=== PATIENT | female | born 1960 | race Caucasian/White ===

== ENCOUNTER 2016-10-10 22:13 | Observation (INO) | payer MEDICARE ==
[2016-10-10] MEDS ORDERED: DUONEB 0.5-3 MG/3 ml Neb IH ONE ×2 (22:36→22:52)
--- NOTE | 2016-10-10 22:43 | ERPHSYRPT ---
- History of Present Illness Time Seen by Provider: 10/10/16 22:31 Source: patient Exam Limitations: no limitations Patient Subjective Stated Complaint: reports that she has had cough/congestion/ nausea since yesterday - unable to lie down flat - SOB with exertion - denies fever at home - denies pain Triage Nursing Assessment: WC to treatment area - waddling gait to cart - moves all extremities with equal strength. skin flushed/hot/dry - no rash/injury appreciated. resps labored per exertion - persisting, hacking cough productive of green mucous. alert/oriented - grimmacing affect. FSBS: 240 Physician History: This is a 56-year-old white female with history of peripheral neuropathy, cataracts, diabetes, arthritis Patient arrives with complaint of cough congestion runny nose symptoms since yesterday she states she's been short of breath with exertion and with lying flat she denies any chest pain she states she felt hot but has not taken her temperature she has no vomiting but has nausea no diarrhea she has no chest pain or abdominal pain. Past medical history includes peripheral neuropathy, cataracts, diabetes, arthritis. Past surgical history includes cholecystectomy, hernia repair, lumpectomy, bilateral cataracts Timing/Duration: yesterday (symptoms since last nightShirley chest pain no) Severity: moderate Modifying Factors: Improves With: nothing Associated Symptoms: nausea, shortness of breath, cough, No vomiting, No abdominal pain, No heartburn, No diaphoresis, No chills, No chest pain, No fever , No headaches, No loss of appetite, No malaise, No rash, No syncope, No seizure , No weakness Allergies/Adverse Reactions: No Known Drug Allergies Allergy (Verified 10/10/16 22:20) Home Medications: Gabapentin 400 mg [Neurontin 400 MG] 600 mg PO QID 04/13/15 [History] Metformin HCl 1000 mg [Glucophage 1000 MG] 1,000 mg PO BID 04/13/15 [History] Naproxen 250 mg PO BID 04/13/15 [History] Nortriptyline HCl [Pamelor] 100 mg PO QHS 04/13/15 [History] Aspirin 81 gm Chew [Baby Aspirin 81 mg Chew] 81 mg PO DAILY 05/03/16 [ History] Bumetanide 1 mg [Bumex 1 mg] 1 mg PO BID 08/03/16 [History] Diclofenac Sodium 50 mg [Voltaren 50 mg] 50 mg PO TID 08/03/16 [History] Glipizide 10 mg [Glucotrol 10 MG] 10 mg PO BID 08/03/16 [History] Insulin Detemir [Levemir] 10 units SQ DAILY 08/03/16 [History] Loratadine 10 mg [Claritin 10 mg] 10 mg PO DAILY 08/03/16 [History] Potassium Chloride 10 Meq Tab* [Klor Con 10 MEQ] 10 meq PO DAILY 08/03/16 [ History] Hydrocodone Bit/Acetaminophen [[place] 5/325Mg] 1 each PO QID 10/10/16 [History] Hx Tetanus, Diphtheria Vaccination/Date Given: Yes Hx Influenza Vaccination/Date Given: No Hx Pneumococcal Vaccination/Date Given: No Immunizations Up to Date: Yes - Review of Systems Constitutional: No Fever, No Chills, No Fatigue, No Lethargy, No Malaise, No Night Sweats, No Weakness, No Weight Loss Eyes: No Symptoms Ears, Nose, & Throat: Nose Congestion, Sinus Drainage, No Ear Pain, No Ear Discharge, No Hearing Changes, No Tinnitus, No Nose Pain, No Nose Discharge, No Epistaxis, No Mouth Pain, No Mouth Swelling, No Loose Teeth, No Throat Pain, No Throat Swelling, No Hoarse, No Painful Swallowing, No Snoring, No Stridor Respiratory: Cough, Dyspnea, No Cyanosis, No Dyspnea on Exertion (LIN), No Stridor, No Wheezing, No Other Cardiac: No Chest Pain, No Edema, No Syncope Abdominal/Gastrointestinal: Nausea, No Abdominal Pain, No Vomiting, No Diarrhea , No Constipation, No Hematemesis, No Hematochezia, No Melena, No Dysphagia, No Appetite Changes Genitourinary Symptoms: No Dysuria Musculoskeletal: No Back Pain, No Neck Pain Skin: No Rash Neurological: No Dizziness, No Focal Weakness, No Sensory Changes Psychological: No Symptoms Endocrine: No Symptoms All Other Systems: Reviewed and Negative - Past Medical History Pertinent Past Medical History: Yes Neurological History: No Pertinent History, Peripheral Neuropathy ENT History: Cataracts Cardiac History: No Pertinent History Respiratory History: No Pertinent History Endocrine Medical History: Diabetes Type II Musculoskeletal History: Arthritis GI Medical History: No Pertinent History History: No Pertinent History Psycho-Social History: No Pertinent History Female Reproductive Disorders: No Pertinent History Other Medical History: UPDATED 03/14/15 - Past Surgical History Past Surgical History: Yes Neuro Surgical History: No Pertinent History Cardiac: No Pertinent History Respiratory: No Pertinent History Gastrointestinal: Bowel Surgery, Cholecystectomy, Hernia Repair Genitourinary: No Pertinent History Musculoskeletal: No Pertinent History Female Surgical History: Lumpectomy Other Surgical History: cataracts bilaterally - Social History Smoking Status: Current every day smoker How long have you smoked: 30 yrs Exposure to second hand smoke: No Alcohol Use: None Drug Use: none Patient Lives Alone: No Significant Family History: diabetes, hypertension - Female History Hx Last Menstrual Period: n/a Hx Now: No - Nursing Vital Signs Nursing Vital Signs: Initial Vital Signs Temperature 98.8 F Temperature Source Oral Pulse Rate 108 Respiratory Rate 20 Blood Pressure [] 140/67 Pain Intensity 0 - Physical Exam General Appearance: mild distress, other (morbidly obese white female alert oriented x 3, coughing) Eye Exam: PERRL/EOMI, eyes nml inspection Ears, Nose, Throat Exam: normal ENT inspection, TMs normal, pharynx normal, moist mucous membranes Neck Exam: normal inspection, non-tender, supple, full range of motion Respiratory Exam: diminished breath sounds, wheezing (Occasional wheeze) Cardiovascular Exam: tachycardia ( mild tachycardia without murmur) Gastrointestinal/Abdomen Exam: soft, normal bowel sounds, No tenderness, No mass Back Exam: normal inspection, normal range of motion, No CVA tenderness, No vertebral tenderness Extremity Exam: normal inspection, normal range of motion, pelvis stable Neurologic Exam: alert, oriented x 3, cooperative, normal mood/affect, nml cerebellar function, nml station & gait, sensation nml, No motor deficits Skin Exam: normal color, warm, dry, No rash Lymphatic Exam: No adenopathy SpO2 Interpretation: normal (96%) SpO2: 96 Oxygen Delivery: Room Air - Course Nursing assessment & vital signs reviewed: Yes EKG Interpreted by Me: RATE (105 bpm), Sinus Tach, NORMAL AXIS, Other (EKG, sinus tachycardia, 105 bpm, normal axis, no acute ST or T wave changes) - Radiology Exams Chest X-ray Interpretation: Interpreted by me (no acute disease process noted) Ordered Tests: Active Orders 24 hr Category Date Time Status Accucheck STAT Care 10/10/16 22:37 Active EKG-ER Only STAT Care 10/10/16 22:36 Active IV Insertion STAT Care 10/10/16 22:36 Active Oxygen-ED Only NASAL CANNULA 2 lpm Care 10/10/16 23:29 Active CHEST 1 VIEW (PORTABLE) Stat Exams 10/10/16 22:36 Taken BLOOD CULTURE Stat Lab 10/10/16 23:44 Ordered CBC W DIFF Stat Lab 10/10/16 22:45 Completed CMP Stat Lab 10/10/16 22:45 Completed CULTURE, THROAT Stat Lab 10/10/16 22:48 Received CULTURE,SPUTUM Stat Lab 10/10/16 23:44 Uncollected HCG QUALITATIVE,SERUM Stat Lab 10/10/16 22:45 Completed Manual Differential NC Stat Lab 10/10/16 22:45 Completed NT PRO BNP Stat Lab 10/10/16 22:45 Completed STREP SCREEN-BETA A Stat Lab 10/10/16 22:48 Completed TROPONIN Stat Lab 10/10/16 22:45 Completed UA W/ MICROSCOPIC Stat Lab 10/10/16 22:40 Completed VENOUS BLOOD GAS Urgent Lab 10/10/16 22:36 Completed Respiratory Nebulizer STAT RT 10/10/16 22:37 Completed Transfer Order Routine Transfer 10/10/16 23:48 Ordered Medication Summary Generic Name Dose Route Start Last Admin Trade Name Freq PRN Reason Stop Dose Admin Ceftriaxone Sodium/Dextrose 50 mls @ 100 mls/hr 10/10/16 23:45 Rocephin 1 Gm-D5w 50 Ml Bag IV 10/11/16 00:14 STAT ONE Sodium Chloride 1,000 mls @ 100 mls/hr 10/10/16 23:45 Sodium Chloride 0.9% 1000 Ml IV 11/09/16 23:44 .Q10H MORRIS Discontinued Medications Generic Name Dose Route Start Last Admin Trade Name Freq PRN Reason Stop Dose Admin Albuterol/Ipratropium 3 ml 10/10/16 22:36 10/10/16 22:57 Duoneb 0.5-3 Mg/3 Ml Neb IH 10/10/16 22:37 3 ml STAT ONE Administration Albuterol/Ipratropium Confirm 10/10/16 22:52 Duoneb 0.5-3 Mg/3 Ml Neb Administered 10/10/16 22:53 Dose 3 ml IH .STK-MED ONE Methylprednisolone Sodium Succinate 125 mg 10/10/16 23:45 Solu-Medrol 125 Mg IV 10/10/16 23:46 STAT ONE Lab/Rad Data: Laboratory Result Diagrams 10/10/16 22:45 10/10/16 22:45 Laboratory Results 10/10/16 10/10/16 10/10/16 Range/Units 22:48 22:45 22:45 WBC (4.0-10.5) K/mm3 RBC (4.1-5.4) M/mm3 Hgb (12.0-16.0) gm/dl Hct (35-47) % MCV (78-100) fl MCH (26-32) pg MCHC (32-36) g/dl RDW (11.5-14.0) % Plt Count (150-450) K/mm3 MPV (6-9.5) fl Segmented Neutrophils (36.0-66.0) % Lymphocytes (Manual) (24-44) % Monocytes (Manual) (0.0-12.0) % Eosinophils (Manual) (0.00-3.0) % Differential Comment Platelet Estimate (NORMAL) Anisocytosis VBG pH (7.32-7.42) VBG pCO2 at Pat Temp (42-55) mm/Hg VBG pO2 at Pat Temp (25-40) mm/Hg VBG HCO3 (22-28) meq/L VBG O2 Sat (Aaron) (95-100) VBG Base Excess (-2.0-2.0) VBG Hemoglobin VBG Carboxyhemoglobin (0.0-6.9) % T HGB POC Potassium (3.5-5.1) Sodium (136-145) mEq/L Potassium (3.5-5.1) mEq/L Chloride (98-107) mEq/L Carbon Dioxide (21-32) mEq/L Anion Gap (5-15) MEQ/L BUN (9-20) mg/dL Creatinine (0.55-1.30) mg/dl Estimated GFR ML/MIN Glucose (70-110) MG/DL Calcium (8.5-10.1) mg/dL Total Bilirubin (0.2-1.0) mg/dL AST (15-37) U/L ALT (12-78) U/L Alkaline Phosphatase (46-116) U/L Troponin I < 0.017 (0.000-0.056) ng/ml NT-Pro-B Natriuret Pep (0-125) pg/ml Serum Total Protein (6.4-8.2) gm/dL Albumin (3.4-5.0) g/dL Serum , Qual NEGATIVE (Negative) Ur Collection Type Urine Color (YELLOW) Urine Appearance (CLEAR) Urine pH (5-6) Ur Specific [place] (1.005-1.025) Urine Protein (Negative) Urine Glucose (UA) (NEGATIVE) mg/dL Urine Ketones (NEGATIVE) Urine Nitrite (NEGATIVE) Urine Bilirubin (NEGATIVE) Urine Urobilinogen (0-1) mg/dL Urine WBC (Auto) (NEGATIVE) Urine RBC (Auto) (0-5) Kevin/ul Urine Microscopic RBC (0-2) /HPF Ur Epithelial Cells (FEW) /HPF Urine Bacteria (NEGATIVE) /HPF Urine Mucus (NEGATIVE) /HPF Streptococcus Screen NEGATIVE (Negative) Specimen Received 10/10/16 10/10/16 10/10/16 Range/Units 22:45 22:45 22:40 WBC 5.9 (4.0-10.5) K/mm3 RBC 4.82 (4.1-5.4) M/mm3 Hgb 16.1 H (12.0-16.0) gm/dl Hct 48.4 H (35-47) % MCV 100.4 H (78-100) fl MCH 33.4 H (26-32) pg MCHC 33.3 (32-36) g/dl RDW 13.3 (11.5-14.0) % Plt Count 199 (150-450) K/mm3 MPV 11.0 H (6-9.5) fl Segmented Neutrophils 78 H (36.0-66.0) % Lymphocytes (Manual) 14 L (24-44) % Monocytes (Manual) 7 (0.0-12.0) % Eosinophils (Manual) 1 (0.00-3.0) % Differential Comment ABNORMAL Platelet Estimate NORMAL (NORMAL) Anisocytosis 1+ VBG pH (7.32-7.42) VBG pCO2 at Pat Temp (42-55) mm/Hg VBG pO2 at Pat Temp (25-40) mm/Hg VBG HCO3 (22-28) meq/L VBG O2 Sat (Aaron) (95-100) VBG Base Excess (-2.0-2.0) VBG Hemoglobin VBG Carboxyhemoglobin (0.0-6.9) % T HGB POC Potassium (3.5-5.1) Sodium 137 (136-145) mEq/L Potassium 4.4 (3.5-5.1) mEq/L Chloride 99 (98-107) mEq/L Carbon Dioxide 25.7 (21-32) mEq/L Anion Gap 16.3 H (5-15) MEQ/L BUN 14 (9-20) mg/dL Creatinine 0.80 (0.55-1.30) mg/dl Estimated GFR > 60 ML/MIN Glucose 250 H (70-110) MG/DL Calcium 9.3 (8.5-10.1) mg/dL Total Bilirubin 0.2 (0.2-1.0) mg/dL AST 25 (15-37) U/L ALT 34 (12-78) U/L Alkaline Phosphatase 128 H (46-116) U/L Troponin I (0.000-0.056) ng/ml NT-Pro-B Natriuret Pep 154 H (0-125) pg/ml Serum Total Protein 7.5 (6.4-8.2) gm/dL Albumin 3.3 L (3.4-5.0) g/dL Serum , Qual (Negative) Ur Collection Type CLEAN CATCH Urine Color YELLOW (YELLOW) Urine Appearance CLEAR (CLEAR) Urine pH 7.0 (5-6) Ur Specific [place] 1.020 (1.005-1.025) Urine Protein 100 (Negative) Urine Glucose (UA) 500 (NEGATIVE) mg/dL Urine Ketones NEGATIVE (NEGATIVE) Urine Nitrite NEGATIVE (NEGATIVE) Urine Bilirubin NEGATIVE (NEGATIVE) Urine Urobilinogen 0.2 (0-1) mg/dL Urine WBC (Auto) NEGATIVE (NEGATIVE) Urine RBC (Auto) TRACE NON-HEM (0-5) Kevin/ul Urine Microscopic RBC 0-2 (0-2) /HPF Ur Epithelial Cells FEW (FEW) /HPF Urine Bacteria FEW (NEGATIVE) /HPF Urine Mucus SLIGHT (NEGATIVE) /HPF Streptococcus Screen (Negative) Specimen Received 10/10/16:2240 10/10/16 Range/Units 22:36 WBC (4.0-10.5) K/mm3 RBC (4.1-5.4) M/mm3 Hgb (12.0-16.0) gm/dl Hct (35-47) % MCV (78-100) fl MCH (26-32) pg MCHC (32-36) g/dl RDW (11.5-14.0) % Plt Count (150-450) K/mm3 MPV (6-9.5) fl Segmented Neutrophils (36.0-66.0) % Lymphocytes (Manual) (24-44) % Monocytes (Manual) (0.0-12.0) % Eosinophils (Manual) (0.00-3.0) % Differential Comment Platelet Estimate (NORMAL) Anisocytosis VBG pH 7.37 (7.32-7.42) VBG pCO2 at Pat Temp 48 (42-55) mm/Hg VBG pO2 at Pat Temp 29 (25-40) mm/Hg VBG HCO3 27.7 (22-28) meq/L VBG O2 Sat (Aaron) 64.4 L (95-100) VBG Base Excess 1.5 (-2.0-2.0) VBG Hemoglobin 16.3 VBG Carboxyhemoglobin 9.8 H* (0.0-6.9) % T HGB POC Potassium 4.7 (3.5-5.1) Sodium (136-145) mEq/L Potassium (3.5-5.1) mEq/L Chloride (98-107) mEq/L Carbon Dioxide (21-32) mEq/L Anion Gap (5-15) MEQ/L BUN (9-20) mg/dL Creatinine (0.55-1.30) mg/dl Estimated GFR ML/MIN Glucose (70-110) MG/DL Calcium (8.5-10.1) mg/dL Total Bilirubin (0.2-1.0) mg/dL AST (15-37) U/L ALT (12-78) U/L Alkaline Phosphatase (46-116) U/L Troponin I (0.000-0.056) ng/ml NT-Pro-B Natriuret Pep (0-125) pg/ml Serum Total Protein (6.4-8.2) gm/dL Albumin (3.4-5.0) g/dL Serum , Qual (Negative) Ur Collection Type Urine Color (YELLOW) Urine Appearance (CLEAR) Urine pH (5-6) Ur Specific [place] (1.005-1.025) Urine Protein (Negative) Urine Glucose (UA) (NEGATIVE) mg/dL Urine Ketones (NEGATIVE) Urine Nitrite (NEGATIVE) Urine Bilirubin (NEGATIVE) Urine Urobilinogen (0-1) mg/dL Urine WBC (Auto) (NEGATIVE) Urine RBC (Auto) (0-5) Kevin/ul Urine Microscopic RBC (0-2) /HPF Ur Epithelial Cells (FEW) /HPF Urine Bacteria (NEGATIVE) /HPF Urine Mucus (NEGATIVE) /HPF Streptococcus Screen (Negative) Specimen Received - Progress Progress: improved Progress Note: 10/10/16 23:38 Patient's O2 saturation goes down to 87% on room air after breathing treatment. Patient still with a few wheezes bilaterally. Patient's labs essentially normal chest x-ray unremarkable glucose elevated at 250. Patient improved after 2 L of oxygen nasal cannula Will go ahead and place patient on IV fluids place patient on steroids and antibiotics case is discussed with Dr. olsen - Departure Time of Disposition: 23:43 Departure Disposition: Observation Clinical Impression: COPD with exacerbation, Bronchitis with bronchospasm, Hypoxia Condition: Fair Critical Care Time: No Referrals: STELLA WISDOM [Primary Care Provider] - Instructions: Chronic Obstructive Pulmonary Disease
[2016-10-10 22:57] LABS: Mean Cell Volume 100.4 fl (78-100); Mean Corpuscular Hemoglobin 33.4 pg (26-32); Platelet Count 199 K/mm3 (150-450); Red Blood Count 4.82 M/mm3 (4.1-5.4); Red Cell Distribution Width 13.3 % (11.5-14.0); White Blood Count 5.9 K/mm3 (4.0-10.5)
[2016-10-10 23:01] LABS: Bacteria FEW /HPF (NEGATIVE); COMPLETE URINE MICROSCOPIC? YES; Collection Type CLEAN CATCH; Epithelial Cells FEW /HPF (FEW); Mucus SLIGHT /HPF (NEGATIVE)
[2016-10-10 23:13] LABS: VBG BASE EXCESS 1.5 (-2.0-2.0); VBG CARBOXYHEMOGLOBIN 9.8 % T HGB (0.0-6.9); VBG HCO3- 27.7 meq/L (22-28); VBG HEMOGLOBIN 16.3; VBG O2 SATURATION 64.4 (95-100); VBG POTASSIUM 4.7 (3.5-5.1); VBG pH 7.37 (7.32-7.42)
[2016-10-10 23:22] LABS: ALBUMIN 3.3 g/dL (3.4-5.0); ALKALINE PHOSPHATASE 128 U/L (46-116); ANION GAP 16.3 MEQ/L (5-15); BILIRUBIN,TOTAL 0.2 mg/dL (0.2-1.0); BLOOD UREA NITROGEN 14 mg/dL (9-20); CHLORIDE 99 mEq/L (98-107); Carbon Dioxide 25.7 mEq/L (21-32); Glucose 250 MG/DL (70-110); Potassium 4.4 mEq/L (3.5-5.1); SGOT/AST 25 U/L (15-37); SGPT/ALT 34 U/L (12-78); SODIUM 137 mEq/L (136-145); Total Protein 7.5 gm/dL (6.4-8.2)
[2016-10-10 23:32] LABS: ANISOCYTOSIS 1+; Eosinophil 1 % (0.00-3.0); Platelet Estimate NORMAL (NORMAL); Total Cells Counted 100
[2016-10-10] MEDS ORDERED: Sodium Chloride 0.9% 1000 ML 1,000 ML IV SCH (23:45)
[2016-10-10] MEDS ORDERED: solu-MEDROL 125 MG IV ONE (23:45)
[2016-10-10] MEDS ORDERED: ROCEPHIN 1 Gm-D5w 50 ml Bag** 50 ML IV ONE ×2 (23:45→23:54)
[2016-10-10] MEDS ORDERED: solu-MEDROL 125 MG ONE (23:54)
[2016-10-10] MEDS ORDERED: Sodium Chloride 0.9% 1000 ML 1,000 ML ONE (23:54)
[2016-10-11] MEDS ORDERED: Sodium Chloride 0.9% 1000 ML 1,000 ML IV SCH (00:42)
[2016-10-11] MEDS ORDERED: NovoLOG Insulin SQ PRN (00:42)
[2016-10-11] MEDS ORDERED: DUONEB 0.5-3 MG/3 ml Neb IH PRN (00:42)
[2016-10-11] MEDS: solu-MEDROL 125 MG IV SCH ×2 (03:25→05:17)
[2016-10-11 05:57] LABS: Mean Cell Volume 99.4 fl (78-100); Mean Corpuscular Hemoglobin 33.3 pg (26-32); Platelet Count 195 K/mm3 (150-450); Red Blood Count 4.92 M/mm3 (4.1-5.4); Red Cell Distribution Width 13.3 % (11.5-14.0)
[2016-10-11 06:41] LABS: ALBUMIN 3.3 g/dL (3.4-5.0); ALKALINE PHOSPHATASE 131 U/L (46-116); ANION GAP 16.7 MEQ/L (5-15); BILIRUBIN,TOTAL 0.3 mg/dL (0.2-1.0); BLOOD UREA NITROGEN 13 mg/dL (9-20); CHLORIDE 99 mEq/L (98-107); Carbon Dioxide 23.7 mEq/L (21-32); Glucose 372 MG/DL (70-110); Potassium 4.5 mEq/L (3.5-5.1); SGOT/AST 31 U/L (15-37); SGPT/ALT 26 U/L (12-78); SODIUM 135 mEq/L (136-145); Total Protein 7.6 gm/dL (6.4-8.2)
[2016-10-11] MEDS ORDERED: Norco 10/325 MG Tablet PO PRN (07:17)
[2016-10-11] MEDS ORDERED: Ativan 2 MG/1 ML VIAL IV PRN (07:17)
--- NOTE | 2016-10-11 07:18 | PCM.HP ---
History of Present Illness - Chief Complaint Chief Complaint: Shortness of Breath Date: 10/11/16 History of Present Illness: is a 56 year old female. who continues to smoke despite her copd. SHe has been coughing and short of breath for the last 2 days and could not sleep last night because she was short of breath with exertion and with laying and could not get comfortable at home and presented to the ED. She was given nebs and O2 she was dipping in the upper 80's on room air for her saturations and given steroids antibiotics and nebs. She was having some diarrhea as well and she had a prolonged time in the ED. She got upset that someone was helping her and touched her foot which she doesn' t like her feet being touched with her neurpathy. She was very agitated at the whole situation and does not want to be in the hospital but her oxygen currently on room air is only 89% with her sittin gin the bed. She states she can't sleep with her IV where it is and just wants to leave. She denies being short of breath right now. SHe also refuses her insulin despite her blood sugar elevation because she is not worried about it being that high and says she doesn't want to eat right now. She did smoke on the car ride over. She does not have gas at her home or wood burning stove. no other known exposure to carbon monoxide other then smoking. - Review of Systems Constitutional: Chills, Fatigue, No Fever Eyes: No Discharge Ears, Nose, & Throat: Nose Discharge, Sinus Drainage Respiratory: Cough, Orthopnea, Short Of Breath Cardiac: Edema, No Chest Pain, No Palpitations, No Syncope Abdominal/Gastrointestinal: Abdominal Pain, Nausea Medications & Allergies Home Medications: Home Medication List Gabapentin 400 mg [Neurontin 400 MG] 600 mg PO QID 04/13/15 [History Confirmed 10/10/16] Metformin HCl 1000 mg [Glucophage 1000 MG] 1,000 mg PO BID 04/13/15 [History Confirmed 10/10/16] Naproxen 250 mg PO BID 04/13/15 [History Confirmed 10/10/16] Nortriptyline HCl [Pamelor] 100 mg PO QHS 04/13/15 [History Confirmed 10/10/16] Aspirin 81 gm Chew [Baby Aspirin 81 mg Chew] 81 mg PO DAILY 05/03/16 [ History Confirmed 10/10/16] Bumetanide 1 mg [Bumex 1 mg] 1 mg PO BID 08/03/16 [History Confirmed 10/10] Diclofenac Sodium 50 mg [Voltaren 50 mg] 50 mg PO TID 08/03/16 [History Confirmed 10/10/16] Glipizide 10 mg [Glucotrol 10 MG] 10 mg PO BID 08/03/16 [History Confirmed 10/10/16] Insulin Detemir [Levemir] 10 units SQ DAILY 08/03/16 [History Confirmed 10/10/16 ] Loratadine 10 mg [Claritin 10 mg] 10 mg PO DAILY 08/03/16 [History Confirmed 10/10/16] Potassium Chloride 10 Meq Tab* [Klor Con 10 MEQ] 10 meq PO DAILY 08/03/16 [ History Confirmed 10/10/16] Hydrocodone Bit/Acetaminophen [[place] 5/325Mg] 1 each PO QID 10/10/16 [History Confirmed 10/10/16] Allergies/Adverse Reactions: Allergies Allergy/AdvReac Type Severity Reaction Status Date / Time No Known Drug Allergies Allergy Verified 10/10/16 22:20 - Past Medical History Past Medical History: Yes Neurological History: No Pertinent History, Peripheral Neuropathy ENT History: Cataracts Cardiac History: No Pertinent History Respiratory History: No Pertinent History Endocrine Medical History: Diabetes Type II Musculoskelatal History: Arthritis GI Medical History: No Pertinent History History: No Pertinent History Pyscho-Social History: No Pertinent History Reproductive Disorders: No Pertinent History Comment: UPDATED 03/14/15 - Female History Hx Last Menstrual Period: n/a Are you now?: No - Past Surgical History Past Surgical History: Yes Neuro Surgical History: No Pertinent History Cardiac History: No Pertinent History Respiratory Surgery: No Pertinent History GI Surgical History: Bowel Surgery, Cholecystectomy, Hernia Repair Genitourinary Surgical Hx: No Pertinent History Musculskeletal Surgical Hx: No Pertinent History Female Surgical History: Lumpectomy Other Surgical History: cataracts bilaterally - Social History Smoking Status: Current every day smoker How long have you smoked: 30 yrs Exposure to second hand smoke: No Alcohol: None Drug Use: none Significant Family History: diabetes, hypertension - Physical Exam Vital Signs: Vital Signs - 24 hr Temp Pulse Resp BP Pulse Ox 10/11/16 04:00 98.2 F 97 H 20 133/60 91 L 10/11/16 03:57 96 H 22 93 L 10/11/16 00:37 99.7 F 101 H 30 H 143/65 91 L 10/10/16 23:53 96 10/10/16 23:27 108 H 20 140/67 87 L 10/10/16 23:00 103 H 20 91 L 10/10/16 22:20 98.8 F 107 H 20 152/68 96 Oxygen-Last 24 hours O2 Percentage 2 Liters = 28% O2 Percentage 2 Liters = 28% O2 Percentage 2 Liters = 28% General Appearance: no apparent distress, alert, obese Neurologic Exam: oriented x 3, agitation Eye Exam: PERRL/EOMI, No scleral icterus, No pale conjunctivae Ears, Nose, Throat Exam: moist mucous membranes Neck Exam: non-tender, supple Respiratory Exam: rhonchi, No respiratory distress Cardiovascular Exam: regular rate/rhythm, normal heart sounds, normal peripheral pulses, edema Gastrointestinal/Abdomen Exam: soft, normal bowel sounds, No tenderness Extremity Exam: pedal edema, No calf tenderness Skin Exam: warm, dry, No rash Results - Labs Lab/Micro Results: Lab Results-Last 24 Hours 10/11/16 10/11/16 Range/Units 04:00 05:32 WBC 5.0 (4.0-10.5) K/mm3 RBC 4.92 (4.1-5.4) M/mm3 Hgb 16.4 H (12.0-16.0) gm/dl Hct 48.9 H (35-47) % MCV 99.4 (78-100) fl MCH 33.3 H (26-32) pg MCHC 33.5 (32-36) g/dl RDW 13.3 (11.5-14.0) % Plt Count 195 (150-450) K/mm3 MPV 11.0 H (6-9.5) fl Sodium 135 L (136-145) mEq/L Potassium 4.5 (3.5-5.1) mEq/L Chloride 99 (98-107) mEq/L Carbon Dioxide 23.7 (21-32) mEq/L Anion Gap 16.7 H (5-15) MEQ/L BUN 13 (9-20) mg/dL Creatinine 0.81 (0.55-1.30) mg/dl Estimated GFR > 60 ML/MIN Glucose 372 H (70-110) MG/DL Calcium 9.4 (8.5-10.1) mg/dL Total Bilirubin 0.3 (0.2-1.0) mg/dL AST 31 (15-37) U/L ALT 26 (12-78) U/L Alkaline Phosphatase 131 H (46-116) U/L Serum Total Protein 7.6 (6.4-8.2) gm/dL Albumin 3.3 L (3.4-5.0) g/dL Assessment/Plan (1) COPD with exacerbation Status: Acute Assessment & Plan: she has been given steroids iv and ceftriaxone and azithromycin with the dounebs she is still dropping to upper 80's on room air as she doesn't want to wear the oxygen she was offered anxiolytic and give ativan and her pain medication to help her calm down she wants to be discharged but discussed with her low oxygen levels would recommend continue the treatments for at least a few more hours here to see how she is progressing. She initially agreed to stay but after I left she decided she did not want to stay I was contacted she was signing herself out AMA. Code(s): J44.1 - CHRONIC OBSTRUCTIVE PULMONARY DISEASE W (ACUTE) EXACERBATION (2) Hypoxia Status: Acute Code(s): R09.02 - HYPOXEMIA (3) Peripheral neuropathy Status: Acute Code(s): G62.9 - POLYNEUROPATHY, UNSPECIFIED (4) Type 2 diabetes mellitus Status: Acute Qualifiers: Diabetes mellitus complication status: with neurologic complications Diabetes mellitus complication detail: with polyneuropathy Diabetes mellitus emt intermediate insulin use: without mcfp use Qualified Code(s): E11.42 - Type 2 diabetes mellitus with diabetic polyneuropathy (5) Obesity Status: Chronic Code(s): E66.9 - OBESITY, UNSPECIFIED
[2016-10-11] MEDS ORDERED: Glucotrol 10 MG PO SCH (07:30)
[2016-10-11] MEDS ORDERED: Lantus Insulin SQ SCH (08:00)
[2016-10-11 08:11] VITALS: BP 148/70; PULSE 95; O2SAT 90
--- NOTE | 2016-10-11 09:10 | XRAY ---
Indication: Cough. Comparison: November 07, 2012. Portable chest again demonstrates normal heart and lungs. Bony thorax intact with minimal degenerative changes.
[2016-10-11] MEDS ORDERED: Zithromax 500 MG/ 250 ML NaCl Premix 250 ML IV SCH ×2 (10:00→22:00)
[2016-10-11] MEDS ORDERED: NEURONTIN 300 MG PO SCH (10:00)
[2016-10-11] MEDS ORDERED: Klor Con 10 MEQ PO SCH (10:00)
[2016-10-11] MEDS ORDERED: CLARITIN 10 MG PO SCH (10:00)
[2016-10-11] MEDS ORDERED: BABY ASPIRIN 81 MG CHEW PO SCH (10:00)
[2016-10-11] MEDS ORDERED: INSULIN DETEMIR 20 UNIT SQ SCH (10:00)
[2016-10-11] MEDS ORDERED: Neurontin 400 MG PO SCH (10:00)
[2016-10-11] MEDS ORDERED: ECOTRIN 81 MG PO SCH (10:00)
[2016-10-11] MEDS ORDERED: NORCO 5/325 MG PO SCH (10:00)
[2016-10-11] MEDS ORDERED: BUMEX 1 MG PO SCH (10:00)
[2016-10-11] MEDS ORDERED: solu-MEDROL 125 MG IV SCH (12:00)
[2016-10-11] MEDS ORDERED: solu-MEDROL 40 MG IV SCH (12:00)
[2016-10-11] MEDS ORDERED: ROCEPHIN 1 Gm-D5w 50 ml Bag** 50 ML IV SCH (22:00)
[2016-10-11] MEDS ORDERED: NORTRIPTYLINE HCL 100 MG PO SCH (22:00)
[2016-10-11] MEDS ORDERED: NORTRIPTYLINE HCL PO SCH (22:00)
== END 2016-10-11 10:15 | disposition home or self-care (01) ==
LOC: ED 22:13 → MED SURG 10-11 00:26
PROVIDERS: ADMIT Family Medicine; ATTEND Family Medicine
DX: J44.1 Chronic obstructive pulmonary disease with (acute) exacerbation (principal); R09.02 Hypoxemia; G62.9 Polyneuropathy, unspecified; Z79.4 Long term (current) use of insulin; E11.42 Type 2 diabetes mellitus with diabetic polyneuropathy; E66.01 Morbid (severe) obesity due to excess calories; M19.90 Unspecified osteoarthritis, unspecified site; Z72.0 Tobacco use
CPT/HCPCS: 96374; 96365; 99285; 36000; 82962; 96360; 93005; 87040 ×2; 81000; 36415 ×2; 84703; 87430; 83880; 87070; 85025 ×2; 80053 ×2; 84484; 87631; 71010; 82805; 94640; A9270 ×4; 93268; 94760; G0378; J0456; J0696; J2060; J2930